=== PATIENT | male | born 1980 | race Caucasian/White ===

== ENCOUNTER 2020-07-21 01:04 | Emergency (ER) | payer OTHER ==
[~2020-07-21] VITALS: Ht 182.9 cm; Wt 72.6 kg
[~2020-07-21 01:04] MED LIST: Norco 5-325 Ta1 EACH PO; OXYACE5T PO; RXOXYACE PO
== END 2020-07-21 02:10 | disposition home or self-care (01) ==
LOC: ER 01:04
DX: S22.42XA Multiple fractures of ribs, left side, initial encounter for closed fracture (principal); Z88.0 Allergy status to penicillin; Y09 Assault by unspecified means
CPT/HCPCS: 71046; 99283-25; A9270

== ENCOUNTER → 2024-10-21 | Outpatient (CLI) | payer OTHER | END | disposition home or self-care (01) | LOC: LAB 16:32 → LAB SHORT 16:32 | DX: L02.414 Cutaneous abscess of left upper limb (principal) | CPT/HCPCS: 87070; 87075; 87077; 87147; 87186; 87205 ==

== ENCOUNTER 2024-11-22 21:26 | Emergency (ER) | payer OTHER ==
[~2024-11-22] VITALS: Ht 182.9 cm; Wt 74.8 kg
[2024-11-22 21:38] VITALS: BP 144/87
[2024-11-22] MEDS ORDERED: Trimethoprim/Sulfamethoxazole DS Tab PO ONE (21:50)
[2024-11-22] MEDS ORDERED: SULTRIDS PO ×2 (21:52→21:54)
== END 2024-11-22 22:09 | disposition home or self-care (01) ==
LOC: ER 21:26
DX: L03.115 Cellulitis of right lower limb (principal); S80.261A Insect bite (nonvenomous), right knee, initial encounter; Z88.0 Allergy status to penicillin; F17.200 Nicotine dependence, unspecified, uncomplicated; Z59.89 Other problems related to housing and economic circumstances; W57.XXXA Bitten or stung by nonvenomous insect and other nonvenomous arthropods, initial encounter
CPT/HCPCS: 99282; A9270